=== PATIENT | female | born 1975 | race Hispanic/Latino ===

== ENCOUNTER 2017-04-08 11:58 | Emergency (ER) | payer OTHER, SELFPAY ==
[2017-04-08] MEDS ORDERED: Ketorolac Tromethamine 30 MG/ML VIAL ONE (12:18)
[2017-04-08] MEDS ORDERED: Ondansetron HCl/PF 4 MG/2 ML Vial ONE (12:18)
[2017-04-08] MEDS ORDERED: Morphine Sulfate 2 MG/ML SYRINGE ONE (12:18)
[2017-04-08 12:35] LABS: #Basophils 0.1 thou/uL (0.0-0.2); #Eosinphils 0.4 thou/uL (0.0-0.7); #Lymphocytes 2.5 thou/uL (1.20-3.40); #Monocytes 0.4 thou/uL (0.11-0.59); #Neutrophils 3.4 thou/uL (1.40-6.50); %Basophils 1.4 % (0.0-1.0); %Eosinophils 6.3 % (0.0-10.0); %Lymphocytes 36.6 % (21.0-51.0); %Monocytes 5.5 % (0.0-10.0); %Neutrophils 50.3 % (42.0-75.0); Hemoglobin 14.1 g/dL (12.0-16.0); Mean Corpuscular HGB CONC 35.2 g/dL (32.0-36.0); Mean Corpuscular Hemoglobin 31.7 pg (27.0-31.0); Mean Platelet Volume 7.5 fL (7.4-10.4); Platelet Count 266 thou/uL (130-400); RBC Distribution Width 11.3 % (11.5-14.5); Red Blood Cell (RBC) Count 4.44 mill/uL (4.20-5.40); White Blood Cell (WBC) Count 6.8 thou/uL (4.8-10.8)
[2017-04-08 12:41] LABS: PTT 25.1 SEC (22.9-36.1); Prothrombin Time 13.3 SEC (12.0-14.7)
[2017-04-08 12:45] LABS: Clarity Clear (Clear); Glucose, Urine (Dipstick) >=1000 mg/dL (Negative); Leukocyte Negative (Negative); Nitrite Negative (Negative); Protein, Urine (Dipstick) 30 mg/dL (Neg-Trace); Specific Gravity, Urine 1.006 (1.005-1.030)
[2017-04-08 12:46] LABS: Bacteria/HPF Rare-Few HPF (None Seen); Bilirubin Negative (Negative); Blood, Urine Trace (Negative); Renal Epithelial 0-3 HPF (0-3); Squamous Epithelial 0-3 HPF (0-3); Transitional Epithelial 0-3 HPF (0-3); Urobilinogen 0.2 mg/dL (0.2-1.0); WBC/HPF 0-3 HPF (0-3)
[2017-04-08 12:49] LABS: ALT (SGPT) 20 U/L (8-55); AST (SGOT) 18 U/L (5-34); Alkaline Phosphatase 75 U/L (40-150); Anion Gap 17 mmol/L (10-20); BUN (Urea Nitrogen) 13 mg/dL (7.0-18.7); Bilirubin, Total 0.4 mg/dL (0.2-1.2); Calc. Creatinine Clearance 0 mL/min (70-130); Calcium 9.6 mg/dL (7.8-10.44); Carbon Dioxide 23 mmol/L (22-29); Chloride 98 mmol/L (98-107); Estimated GFR-MDRD 86; Globulin 3.7 g/dL (2.4-3.5); Glucose 425 mg/dL (70-105); Lipase 19 U/L (8-78); Potassium 3.8 mmol/L (3.5-5.1); Protein, Total 7.7 g/dL (6.0-8.3); Sodium 134 mmol/L (136-145)
[2017-04-08] MEDS ORDERED: Insulin Regular 300 UNITS/3 ML VIAL ONE (12:56)
[2017-04-08 13:16] LABS: Amphetamine Not Detected (NotDetected); Barbiturates Screen Not Detected (NotDetected); Benzodiazepine Screen Not Detected (NotDetected); Cocaine Metabolite Screen Not Detected (NotDetected); Medtox Control Line Valid? VALID (VALID); Methadone Not Detected (NotDetected); Methamphetamine Not Detected (NotDetected); Opiate Screen Not Detected (NotDetected); Oxycodone Screen Not Detected (NotDetected); Phencyclidine (PCP) Not Detected (NotDetected); THC/Cannabinoid Screen Not Detected (NotDetected); Tricyclic Screen Not Detected (NotDetected)
[2017-04-08 13:32] LABS: Acetaminophen Less than 6.0 mcg/mL (10.0-30.0); Alcohol Less than 10 mg/dL (Less than 10); Salicylate Less than 8.0 mg/dL (15.0-30.0)
--- NOTE | 2017-04-08 14:45 | CT ---
CT HEAD NONCONTRAST: HISTORY: Fall. Head injury. FINDINGS: There is no evidence of acute intracranial hemorrhage or infarct. The ventricles appear normal in s ize, shape, and position. There is no mass effect or shift of midline structures. Mucous retention cysts are partially visualized within the paranasal sinuses. IMPRESSION: No acute intracranial abnormalities are demonstrated on noncontrast CT head. POS: [facility]
--- NOTE | 2017-04-08 14:46 | CT ---
CT CERVICAL SPINE NONCONTRAST: HISTORY: Fall. Head injury. FINDINGS: Vertebral body heights and alignment are maintained. Cervicothoracic junction is intact. No acute fracture or dislocation are apparent. A tiny nonspecific subpleural nodule is apparent at the right lateral lung apex. IMPRESSION: No acute osseous abnormalities of the cervical spine are demonstrated. POS: [facility]
--- NOTE | 2017-04-08 14:49 | CT ---
CT CHEST WITH IV CONTRAST CT ABDOMEN AND PELVIS WITH IV CONTRAST CT THORACIC SPINE NONCONTRAST CT LUMBAR SPINE NONCONTRAST: HISTORY: Fall. Chest injury. Abdomen injury. Back injury. FINDINGS: There is no evidence of pneumothorax or mediastinal hematoma. A cluster of predominantly peripheral nodules involves each lower lobe, measuring up to 1.2 cm greatest diameter on the left and 1.1 cm o n the right. The largest of the nodules contains some central cavitation. Additional smaller nodul es involve each lung. No lobar consolidation is apparent. 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 No intraabdominal hemorrhage is apparent. The liver, spleen, kidneys, and adrena l glands have a normal CT appearance. Nonspecific lymph nodes are scattered about the retroperitone um. Urinary bladder is unremarkable. Vertebral body heights and alignment of the thoracolumbar spine are intact. No acute fracture or di slocation are visible. IMPRESSION: 1. No acute traumatic injury is demonstrated. 2. Multifocal nodules involving the lungs, predominantly the lower lobes, as detailed above, are fa vored to be related to an infectious process with developing septic emboli. Metastatic disease of t he chest is a less likely possibility. Clinical correlation regarding other signs and symptoms of s eptic emboli is required. Please consider pulmonary medicine and infectious disease evaluation. POS: [facility]
== END 2017-04-08 13:29 | disposition home or self-care (01) ==
LOC: MADERS 11:58
DX: S00.03XA Contusion of scalp, initial encounter (principal); J98.4 Other disorders of lung; E11.65 Type 2 diabetes mellitus with hyperglycemia; Z79.4 Long term (current) use of insulin; W17.89XA Other fall from one level to another, initial encounter
CPT/HCPCS: 36415; 36416; 51701; 70450; 71260; 72125; 74177; 80053; 80306; 80307; 81001; 83690; 85025; 85610; 85730; 87086; 96374; 96375; A4353; G0390; J1815; J1885; J2270; J2405

== ENCOUNTER 2017-06-12 13:59 | Emergency (ER) | payer SELFPAY ==
[~2017-06-12 13:59] MED LIST: Sodium Chloride 0.9% 1,000 ML BAG ONE; Sodium Chloride 0.9% 100 ML BAG ONE
[2017-06-12 15:16] LABS: #Basophils 0.1 thou/uL (0.0-0.2); #Eosinphils 0.7 thou/uL (0.0-0.7); #Lymphocytes 2.3 thou/uL (1.20-3.40); #Monocytes 0.5 thou/uL (0.11-0.59); #Neutrophils 4.1 thou/uL (1.40-6.50); %Basophils 1.6 % (0.0-1.0); %Eosinophils 8.6 % (0.0-10.0); %Lymphocytes 30.2 % (21.0-51.0); %Monocytes 6.2 % (0.0-10.0); %Neutrophils 53.5 % (42.0-75.0); Hemoglobin 14.7 g/dL (12.0-16.0); Mean Corpuscular HGB CONC 33.4 g/dL (32.0-36.0); Mean Corpuscular Hemoglobin 31.4 pg (27.0-31.0); Mean Platelet Volume 7.5 fL (7.4-10.4); Platelet Count 292 thou/uL (130-400); RBC Distribution Width 11.8 % (11.5-14.5); Red Blood Cell (RBC) Count 4.68 mill/uL (4.20-5.40); White Blood Cell (WBC) Count 7.7 thou/uL (4.8-10.8)
[2017-06-12 15:20] LABS: INR-International Normal Ratio 0.9; PTT 24.1 SEC (22.9-36.1); Prothrombin Time 12.1 SEC (12.0-14.7)
[2017-06-12 15:31] LABS: ALT (SGPT) 18 U/L (8-55); AST (SGOT) 18 U/L (5-34); Albumin 3.9 g/dL (3.5-5.0); Alkaline Phosphatase 72 U/L (40-150); Anion Gap 17 mmol/L (10-20); BUN (Urea Nitrogen) 15 mg/dL (7.0-18.7); Bilirubin, Total 0.4 mg/dL (0.2-1.2); CK (CPK) 38 U/L (29-168); Calc. Creatinine Clearance 0 mL/min (70-130); Calcium 9.6 mg/dL (7.8-10.44); Carbon Dioxide 21 mmol/L (22-29); Chloride 95 mmol/L (98-107); Estimated GFR-MDRD 62; Globulin 3.8 g/dL (2.4-3.5); Magnesium 2.1 mg/dL (1.6-2.6); Potassium 5.1 mmol/L (3.5-5.1); Protein, Total 7.7 g/dL (6.0-8.3); Sodium 128 mmol/L (136-145)
[2017-06-12 15:33] LABS: CKMB 1.1 ng/mL (0-6.6); Glucose 661 mg/dL (70-105); Troponin I Less than 0.010 ng/mL (< 0.028)
--- NOTE | 2017-06-12 15:33 | RAD ---
ONE VIEW CHEST: History: Hyperglycemia. Comparison: None. FINDINGS: Atherosclerosis of the aortic knob. Normal cardiac silhouette. The pulmonary vessels and hilum are n ormal. No mass or consolidation. No pneumothorax or osseous abnormality. IMPRESSION: No acute cardiopulmonary process. POS: [facility]
[2017-06-12 15:51] LABS: Clarity Slightly Cloudy (Clear); Specific Gravity, Urine 1.035 (1.002-1.036); pH, Urine 5.5 (5.0-9.0)
[2017-06-12 15:52] LABS: Bacteria/HPF 2+ HPF (None Seen); Bilirubin Negative (Negative); Blood, Urine Negative (Negative); Glucose, Urine (Dipstick) >=1000 mg/dL (Negative); Leukocyte Negative (Negative); Nitrite Negative (Negative); Protein, Urine (Dipstick) Negative (Neg-Trace); RBC/HPF 0-3 HPF (0-3); Urobilinogen 0.2 mg/dL (0.2-1.0); WBC/HPF 0-3 HPF (0-3)
[2017-06-12] MEDS ORDERED: Insulin Regular 300 UNITS/3 ML VIAL ONE (16:09)
== END 2017-06-12 19:58 | disposition home or self-care (01) ==
LOC: MADERS 13:59
DX: E11.65 Type 2 diabetes mellitus with hyperglycemia (principal); Z79.4 Long term (current) use of insulin
CPT/HCPCS: 36416; 71010; 80053; 81001; 82550; 82553; 83735; 83880; 84484; 85025; 85610; 85730; 87040; 87077; 87086; 87186; 93005; 94760; 96361; 96365; 96366; 96376; J1815; J7050